=== PATIENT | male | born 1985 | race Caucasian/White ===

== ENCOUNTER 2024-08-17 15:08 | Inpatient (IN) | payer OTHER ==
[2024-08-17] VITALS (19 sets, daily range): BP systolic 103–157; BP diastolic 60–94; TEMP 98.2; O2SAT 100
[~2024-08-17] VITALS: Ht 165.1 cm; Wt 72.0 kg
[2024-08-17] MEDS: LIDOCAINE 2% 5ML JELLY UROJET TOP ONE (15:30)
[2024-08-17 15:40] LABS: BASO # 0.1 10^3/uL (0.0-0.2); BASO % 0.2 % (0.0-1.0); EOS % 0.1 % (0.0-3.0); HEMATOCRIT 48.4 % (42.0-52.0); HEMOGLOBIN 15.9 g/dl (13.5-17.5); LYMPH # 2.4 10^3/uL (1.5-5.0); LYMPH % 11.7 % (24.0-44.0); MEAN CORPUSCULAR HEMOGLOBIN 29.1 pg (27.0-33.0); MEAN CORPUSCULAR HGB CONC 32.9 g/dl (32.0-36.5); MEAN CORPUSCULAR VOLUME 88.6 fl (80.0-96.0); MONO # 1.4 10^3/uL (0.0-0.8); NEUTROPHILS # 16.4 10^3/uL (1.5-8.5); NEUTROPHILS % 80.6 % (36.0-66.0); PLATELET COUNT, AUTOMATED 323 10^3/uL (150-450); RED BLOOD COUNT 5.46 10^6/uL (4.30-6.10); WHITE BLOOD COUNT 20.3 10^3/uL (4.0-10.0)
[2024-08-17] MEDS: NS (Normal Saline) 0.9% 1,000 ML IV ONE ×2 (15:59→17:39)
[2024-08-17] MEDS: NALOXONE INJ 0.4MG/1ML VIAL IV PRN (15:59)
[2024-08-17 16:09] LABS: ETHYL ALCOHOL (ETHANOL) < 0.003 % (0.000-0.010)
[2024-08-17 16:11] LABS: SALICYLATE LEVEL < 3.0 MG/DL (<30)
[2024-08-17 16:12] LABS: ALBUMIN 4.3 G/DL (3.2-5.2); ALKALINE PHOSPHATASE 83 U/L (40-129); ALT/SGPT 28 U/L (7.0-40); AST/SGOT 29 U/L (<34); BILIRUBIN,DIRECT 0.3 MG/DL (<0.4); BILIRUBIN,TOTAL 1.1 MG/DL (0.3-1.2); BLOOD UREA NITROGEN 21 MG/DL (9-23); CALCIUM LEVEL 9.5 MG/DL (8.5-10.1); CARBON DIOXIDE LEVEL 29 MMOL/L (20-31); CHLORIDE LEVEL 105 MMOL/L (98-107); CREATININE FOR GFR 0.68 MG/DL (0.70-1.30); GLOMERULAR FILTRATION RATE > 90.0 (>60); GLUCOSE, FASTING 112 MG/DL (60-100); POTASSIUM SERUM 4.2 MMOL/L (3.5-5.1); SODIUM LEVEL 142 MMOL/L (136-145); TOTAL PROTEIN 7.2 G/DL (5.7-8.2)
[2024-08-17 16:14] LABS: THYROID STIMULATING HORMONE 0.136 uIU/ML (0.55-4.78)
[2024-08-17 16:19] LABS: BARBITURATES URINE NEGATIVE (NEGATIVE); METHADONE URINE NEGATIVE (NEGATIVE); PHENCYCLIDINE URINE NEGATIVE (NEGATIVE)
[2024-08-17 16:25] LABS: AMPHETAMINES LEVEL URINE POSITIVE (NEGATIVE); BENZODIAZEPINES URINE POSITIVE (NEGATIVE); CANNABINOIDS URINE POSITIVE (NEGATIVE); COCAINE METABOLITE URINE POSITIVE (NEGATIVE); OPIATES URINE POSITIVE (NEGATIVE)
[2024-08-17 17:02] LABS: CPK CREATINE PHOSPHOKINASE 485 U/L (46-171)
[2024-08-17] MEDS: LORazepam 2 MG/ML 1ML VIAL IV STA (17:05)
[2024-08-17] MEDS: ACETAMINOPHEN *IV* 1,000 MG in IV 1 EA IV ONE (17:10)
[2024-08-17] MEDS: ROCURONIUM BROMIDE 50MG/5ML VIAL IV ONE (17:20)
[2024-08-17] MEDS: ETOMIDATE INJ 20MG/10ML VIAL IV ONE (17:20)
[2024-08-17 17:26] LABS: PROCALCITONIN <0.04 ng/ml
[2024-08-17] MEDS: propofoL 1,000 MG in IV 1 EA IV SCH ×2 (17:31→18:21)
[2024-08-17] MEDS: ROCURONIUM BROMIDE 50MG/5ML VIAL IV PRN (17:44)
[2024-08-17] MEDS: MIDAZOLAM INJ 2MG/2ML VIAL IV STA ×2 (17:45→17:56)
[2024-08-17 17:55] LABS: ABG HCO3 22.1 MMOL/L (22.0-26.0); ABG O2 SATURATION 98.4 % (95.0-99.0); ABG PARTIAL PRESSURE CO2 39.9 mmHg (35.0-45.0); ABG PARTIAL PRESSURE O2 126.1 mmHg (75.0-100.0); ABG TOTAL CO2 23.3 MMOL/L (22.0-29.0); ABG pH (ARTERIAL) 7.361 UNITS (7.350-7.450)
[2024-08-17] MEDS ORDERED: MIDAZOLAM 5MG/ML 1ML VIAL As Ordered ONE (17:57)
[2024-08-17] MEDS: propofoL 200 MG/20 ML VIAL IV ONE (18:00)
[2024-08-17] MEDS: MIDAZOLAM 100MG/100ML-0.9%NACL 100 MG in IV 1 EA IV SCH ×2 (18:38→20:04)
[2024-08-17] MEDS ORDERED: FENTANYL DRIP LOCK BOX KEY 1 EACH XX PRN (18:50)
[2024-08-17] MEDS: fentaNYL CITRATE/NaCl 1,000 MCG in IV 1 EA IV SCH (18:55)
[2024-08-17 18:58] LABS: APPEARANCE, CSF CLOUDY (CLEAR); COLOR, CSF PINK (COLORLESS); CSF TUBE# CELL CNT TUBE 1
[2024-08-17] MEDS: fentaNYL 100 MCG/2 ML INJECTION IV ONE (18:59)
[2024-08-17 19:18] LABS: CSF TUBE# TP TUBE 2; TOTAL PROTEIN,CSF 33.5 MG/DL (15-45)
[2024-08-17 19:21] LABS: CSF TUBE# GLU TUBE 2
[2024-08-17] MEDS: CISATRACURIUM 10MG/ML 20 ML VIAL IV ONE (20:01)
[2024-08-17] MEDS: CISATRACURIUM 200 MG in NS 480 ML IV SCH (20:02)
[2024-08-17] MEDS: VANCOMYCIN HCL 1,500 MG, VIAL MATE ADAPTER 1 EACH in NS 500 ML IV ONE (20:07)
[2024-08-17] MEDS: LR 1,000 ML IV SCH (20:12)
[2024-08-17] MEDS: cefTRIAXone SOD 2 GM in DEXTROSE 5% (D5W) ADV/MINI-BAG 50 ML IV ONE (20:12)
[2024-08-17] MEDS: ACYCLOVIR IV SCH (22:42)
[2024-08-17] MEDS: NS IV SCH (22:42)
[2024-08-18] VITALS (36 sets, daily range): BP systolic 109–172; BP diastolic 57–98; TEMP 97.2–100.6; O2SAT 90–100
[2024-08-18 00:45] LABS: ALBUMIN 2.9 G/DL (3.2-5.2); ALKALINE PHOSPHATASE 56 U/L (40-129); ALT/SGPT 16 U/L (7.0-40); AST/SGOT 21 U/L (<34); BILIRUBIN,TOTAL 0.6 MG/DL (0.3-1.2); BLOOD UREA NITROGEN 17 MG/DL (9-23); CALCIUM LEVEL 7.2 MG/DL (8.5-10.1); CARBON DIOXIDE LEVEL 26 MMOL/L (20-31); CHLORIDE LEVEL 113 MMOL/L (98-107); CPK CREATINE PHOSPHOKINASE 274 U/L (46-171); CREATININE FOR GFR 0.57 MG/DL (0.70-1.30); GLOMERULAR FILTRATION RATE > 90.0 (>60); GLUCOSE, FASTING 79 MG/DL (60-100); PHOSPHORUS LEVEL 4.3 MG/DL (2.5-4.9); POTASSIUM SERUM 3.4 MMOL/L (3.5-5.1); SODIUM LEVEL 148 MMOL/L (136-145)
[2024-08-18] MEDS: KCL 10MEQ/100ML SWI (KRUN) 10 MEQ in IV 1 EA IV SCH (01:57)
[2024-08-18] MEDS: VANCOMYCIN HCL 1,000 MG, VIAL MATE ADAPTER 1 EACH in NS 250 ML IV SCH (05:10)
[2024-08-18 05:26] LABS: BASO # 0.1 10^3/uL (0.0-0.2); BASO % 0.4 % (0.0-1.0); EOS # 0.3 10^3/uL (0.0-0.5); EOS % 1.7 % (0.0-3.0); HEMATOCRIT 39.8 % (42.0-52.0); LYMPH # 3.7 10^3/uL (1.5-5.0); LYMPH % 22.7 % (24.0-44.0); MEAN CORPUSCULAR HEMOGLOBIN 29.4 pg (27.0-33.0); MEAN CORPUSCULAR HGB CONC 32.7 g/dl (32.0-36.5); MONO # 1.6 10^3/uL (0.0-0.8); MONO % 9.7 % (2.0-8.0); NEUTROPHILS # 10.5 10^3/uL (1.5-8.5); NEUTROPHILS % 65.2 % (36.0-66.0); RED BLOOD COUNT 4.42 10^6/uL (4.30-6.10); WHITE BLOOD COUNT 16.1 10^3/uL (4.0-10.0)
[2024-08-18 05:27] LABS: PLATELET COUNT, AUTOMATED 223 10^3/uL (150-450)
[2024-08-18 05:35] LABS: ALBUMIN 3.2 G/DL (3.2-5.2); ALKALINE PHOSPHATASE 61 U/L (40-129); ALT/SGPT 17 U/L (7.0-40); AST/SGOT 19 U/L (<34); BILIRUBIN,TOTAL 0.7 MG/DL (0.3-1.2); BLOOD UREA NITROGEN 16 MG/DL (9-23); CALCIUM LEVEL 8.3 MG/DL (8.5-10.1); CARBON DIOXIDE LEVEL 30 MMOL/L (20-31); CHLORIDE LEVEL 110 MMOL/L (98-107); CREATININE FOR GFR 0.63 MG/DL (0.70-1.30); GLOMERULAR FILTRATION RATE > 90.0 (>60); GLUCOSE, FASTING 100 MG/DL (60-100); POTASSIUM SERUM 3.9 MMOL/L (3.5-5.1); SODIUM LEVEL 147 MMOL/L (136-145); TOTAL PROTEIN 5.4 G/DL (5.7-8.2)
[2024-08-18 07:54] LABS: TRIGLYCERIDES LEVEL 166 MG/DL (<150)
[2024-08-18 07:55] LABS: VANCOMYCIN LEVEL TROUGH 9.4 UG/ML (10.0-20.0)
[2024-08-18] MEDS ORDERED: MED REC CURRENTLY UNOBTAINABLE XX SCH (08:35)
[2024-08-18] MEDS: PANTOPRAZOLE 40MG VIAL IV SCH (08:56)
[2024-08-18] MEDS: ENOXAPARIN 40MG/0.4ML SYRINGE (J1650 PER 10MG) SC SCH (08:56)
[2024-08-18] MEDS: D5W 1,000 ML IV ONE (12:22)
[2024-08-18 12:41] LABS: FREE T4 1.31 NG/DL (0.89-1.76); THYROID STIMULATING HORMONE 0.579 uIU/ML (0.55-4.78)
[2024-08-18] MEDS: cefTRIAXone SOD 1 GM in DEXTROSE 5% (D5W) ADV/MINI-BAG 50 ML IV SCH (20:27)
[2024-08-19] VITALS: BP 145/77; TEMP 98.9; O2SAT 97
[2024-08-19 04:00] VITALS: BP 160/77; TEMP 98.2; O2SAT 100
[2024-08-19 05:10] LABS: BASO % 0.2 % (0.0-1.0); EOS # 0.1 10^3/uL (0.0-0.5); EOS % 0.4 % (0.0-3.0); HEMATOCRIT 37.3 % (42.0-52.0); HEMOGLOBIN 12.5 g/dl (13.5-17.5); LYMPH # 2.8 10^3/uL (1.5-5.0); LYMPH % 14.8 % (24.0-44.0); MEAN CORPUSCULAR HEMOGLOBIN 29.6 pg (27.0-33.0); MEAN CORPUSCULAR HGB CONC 33.5 g/dl (32.0-36.5); MEAN CORPUSCULAR VOLUME 88.2 fl (80.0-96.0); MONO # 1.6 10^3/uL (0.0-0.8); MONO % 8.5 % (2.0-8.0); NEUTROPHILS # 14.3 10^3/uL (1.5-8.5); NEUTROPHILS % 75.8 % (36.0-66.0); PLATELET COUNT, AUTOMATED 202 10^3/uL (150-450); RED BLOOD COUNT 4.23 10^6/uL (4.30-6.10); WHITE BLOOD COUNT 18.9 10^3/uL (4.0-10.0)
[2024-08-19 05:41] LABS: ALBUMIN 3.1 G/DL (3.2-5.2); ALKALINE PHOSPHATASE 62 U/L (40-129); ALT/SGPT 15 U/L (7.0-40); AST/SGOT 18 U/L (<34); BILIRUBIN,TOTAL 0.9 MG/DL (0.3-1.2); BLOOD UREA NITROGEN 7 MG/DL (9-23); CALCIUM LEVEL 8.4 MG/DL (8.5-10.1); CARBON DIOXIDE LEVEL 28 MMOL/L (20-31); CHLORIDE LEVEL 107 MMOL/L (98-107); CREATININE FOR GFR 0.59 MG/DL (0.70-1.30); GLOMERULAR FILTRATION RATE > 90.0 (>60); GLUCOSE, FASTING 100 MG/DL (60-100); POTASSIUM SERUM 3.2 MMOL/L (3.5-5.1); SODIUM LEVEL 145 MMOL/L (136-145); TOTAL PROTEIN 5.3 G/DL (5.7-8.2)
[2024-08-19 08:00] VITALS: BP 140/71; TEMP 100; O2SAT 96
[2024-08-19] MEDS: POTASSIUM CHLORIDE 10% LIQ 20MEQ/15ML UDC PO ONE (09:06)
[2024-08-19 16:00] VITALS: BP 156/76; TEMP 98.9; O2SAT 98
[2024-08-19 20:53] VITALS: BP 141/73; TEMP 99.6; O2SAT 100
[2024-08-19] MEDS ORDERED: HOME MED LIST COMPLETE! XX SCH (22:00)
[2024-08-20 05:38] LABS: BASO # 0.1 10^3/uL (0.0-0.2); BASO % 0.4 % (0.0-1.0); EOS # 0.2 10^3/uL (0.0-0.5); EOS % 1.1 % (0.0-3.0); HEMATOCRIT 39.8 % (42.0-52.0); HEMOGLOBIN 13.2 g/dl (13.5-17.5); LYMPH # 3.3 10^3/uL (1.5-5.0); LYMPH % 23.4 % (24.0-44.0); MEAN CORPUSCULAR HEMOGLOBIN 29.1 pg (27.0-33.0); MEAN CORPUSCULAR HGB CONC 33.2 g/dl (32.0-36.5); MEAN CORPUSCULAR VOLUME 87.9 fl (80.0-96.0); MONO # 1.5 10^3/uL (0.0-0.8); MONO % 10.5 % (2.0-8.0); NEUTROPHILS # 8.9 10^3/uL (1.5-8.5); NEUTROPHILS % 64.2 % (36.0-66.0); PLATELET COUNT, AUTOMATED 235 10^3/uL (150-450); RED BLOOD COUNT 4.53 10^6/uL (4.30-6.10); WHITE BLOOD COUNT 13.9 10^3/uL (4.0-10.0)
[2024-08-20 05:57] LABS: ALKALINE PHOSPHATASE 70 U/L (40-129); ALT/SGPT 15 U/L (7.0-40); AST/SGOT 10 U/L (<34); BILIRUBIN,TOTAL 0.3 MG/DL (0.3-1.2); BLOOD UREA NITROGEN 10 MG/DL (9-23); CALCIUM LEVEL 8.2 MG/DL (8.5-10.1); CARBON DIOXIDE LEVEL 26 MMOL/L (20-31); CHLORIDE LEVEL 108 MMOL/L (98-107); CREATININE FOR GFR 0.62 MG/DL (0.70-1.30); GLOMERULAR FILTRATION RATE > 90.0 (>60); GLUCOSE, FASTING 102 MG/DL (60-100); POTASSIUM SERUM 3.3 MMOL/L (3.5-5.1); SODIUM LEVEL 143 MMOL/L (136-145); TOTAL PROTEIN 5.4 G/DL (5.7-8.2)
[2024-08-20 07:42] LABS: MAGNESIUM LEVEL 1.9 MG/DL (1.8-2.4)
[2024-08-20 08:00] VITALS: BP 144/72; TEMP 97.5; O2SAT 97
[2024-08-20] MEDS: POTASSIUM CHLORIDE 10MEQ SR TABLET PO SCH (08:36)
[2024-08-20 18:27] LABS: LYME TOTAL ANTIBODY CIA <= 0.90 Index (<=0.90)
== END 2024-08-20 14:23 | disposition home or self-care (01) | DRG 774 ==
LOC: EDBD 15:08 → M ED 15:08 → M ED INP 18:05 → M ICU 19:58
PROVIDERS: ADMIT Internal Medicine Pulmonary Disease; ATTEND General Practice
PROC: 5A1935Z Respiratory Ventilation, Less than 24 Consecutive Hours (ICD-10-PCS; principal; 2024-08-17)
PROC: 009U3ZX Drainage of Spinal Canal, Percutaneous Approach, Diagnostic (ICD-10-PCS; 2024-08-17)
PROC: 0BH17EZ Insertion of Endotracheal Airway into Trachea, Via Natural or Artificial Opening (ICD-10-PCS; 2024-08-17)
DX: F16.929 Hallucinogen use, unspecified with intoxication, unspecified (principal); G93.41 Metabolic encephalopathy; J68.0 Bronchitis and pneumonitis due to chemicals, gases, fumes and vapors; E87.0 Hyperosmolality and hypernatremia; E83.51 Hypocalcemia; E87.6 Hypokalemia; E86.0 Dehydration; R00.1 Bradycardia, unspecified; B97.29 Other coronavirus as the cause of diseases classified elsewhere; R03.0 Elevated blood-pressure reading, without diagnosis of hypertension; F41.9 Anxiety disorder, unspecified; F15.929 Other stimulant use, unspecified with intoxication, unspecified; F14.929 Cocaine use, unspecified with intoxication, unspecified

== ENCOUNTER 2024-09-12 17:51 | Emergency (ER) | payer SELFPAY ==
[2024-09-12] MEDS: ACETAMINOPHEN *IV* 1,000 MG in IV 1 EA IV ONE (19:41)
[2024-09-12] MEDS: NS (Normal Saline) 0.9% 1,000 ML IV ONE ×2 (19:41→21:44)
[2024-09-12] MEDS: ONDANSETRON 4MG 2ML VIAL IV ONE (19:41)
[2024-09-12 19:49] LABS: VENOUS BASE EXCESS -1.4 (-2.0-2.0); VENOUS HCO3 24.4 MMOL/L (23.0-27.0); VENOUS PARTIAL PRESSURE CO2 44.9 mmHg (38.0-50.0); VENOUS PARTIAL PRESSURE O2 59.2 mmHg (30.0-50.0); VENOUS PH 7.353 UNITS (7.330-7.430); VENOUS STANDARD HCO3 23.1 MMOL/L; VENOUS TOTAL CO2 25.8 MMOL/L (24.0-28.0)
[2024-09-12 19:53] LABS: BASO # 0.1 10^3/uL (0.0-0.2); BASO % 0.2 % (0.0-1.0); EOS # 0.2 10^3/uL (0.0-0.5); EOS % 0.5 % (0.0-3.0); HEMATOCRIT 40.7 % (42.0-52.0); HEMOGLOBIN 13.4 g/dl (13.5-17.5); LYMPH # 2.8 10^3/uL (1.5-5.0); LYMPH % 9.4 % (24.0-44.0); MEAN CORPUSCULAR HEMOGLOBIN 30.1 pg (27.0-33.0); MEAN CORPUSCULAR HGB CONC 32.9 g/dl (32.0-36.5); MEAN CORPUSCULAR VOLUME 91.5 fl (80.0-96.0); MONO % 6.8 % (2.0-8.0); NEUTROPHILS # 24.5 10^3/uL (1.5-8.5); NEUTROPHILS % 81.9 % (36.0-66.0); PLATELET COUNT, AUTOMATED 215 10^3/uL (150-450); RED BLOOD COUNT 4.45 10^6/uL (4.30-6.10); WHITE BLOOD COUNT 29.9 10^3/uL (4.0-10.0)
[2024-09-12 20:17] LABS: KETONE, URINE AUTO RFX NEGATIVE (NEGATIVE); LEUKOCYTE ESTERASE UR AUTO RFX NEGATIVE (NEGATIVE); MUCUS, URINE RFX SMALL (NEGATIVE); NITRITE, URINE AUTO RFX NEGATIVE (NEGATIVE); RBC, URINE AUTO RFX 1 /HPF (0-3); SQUAM EPITHELIAL CELL UR AURFX 0 /HPF (0-6); WBC, URINE AUTO RFX 1 /HPF (0-3)
[2024-09-12] MEDS: CEFEPIME HCL 2 GM in DEXTROSE 5% (D5W) ADV/MINI-BAG 50 ML IV ONE (21:44)
[2024-09-12 21:45] LABS: CK-MB VALUE MASS 4.6 NG/ML (<3.6)
[2024-09-12 21:46] LABS: ETHYL ALCOHOL (ETHANOL) < 0.003 % (0.000-0.010)
[2024-09-12 21:48] LABS: CPK CREATINE PHOSPHOKINASE 257 U/L (46-171); MB/CK RELATIVE INDEX 1.78 (< OR =4); SALICYLATE LEVEL < 3.0 MG/DL (<30)
[2024-09-12 21:49] LABS: THYROID STIMULATING HORMONE 0.662 uIU/ML (0.55-4.78)
[2024-09-12 21:50] LABS: ALBUMIN 3.5 G/DL (3.2-5.2); ALKALINE PHOSPHATASE 69 U/L (40-129); ALT/SGPT 50 U/L (7.0-40); AST/SGOT 25 U/L (<34); BILIRUBIN,DIRECT < 0.1 MG/DL (<0.4); BILIRUBIN,TOTAL 0.3 MG/DL (0.3-1.2); BLOOD UREA NITROGEN 24 MG/DL (9-23); CALCIUM LEVEL 8.3 MG/DL (8.5-10.1); CARBON DIOXIDE LEVEL 27 MMOL/L (20-31); CHLORIDE LEVEL 110 MMOL/L (98-107); CREATININE FOR GFR 0.67 MG/DL (0.70-1.30); GLOMERULAR FILTRATION RATE > 90.0 (>60); GLUCOSE, FASTING 76 MG/DL (60-100); POTASSIUM SERUM 3.6 MMOL/L (3.5-5.1); SODIUM LEVEL 146 MMOL/L (136-145); TOTAL PROTEIN 5.8 G/DL (5.7-8.2)
[2024-09-12] MEDS ORDERED: ISOVUE-370 76% 100ML VIAL As Ordered ONE (22:06)
[2024-09-12 22:13] LABS: AMPHETAMINES LEVEL URINE NEGATIVE (NEGATIVE); BARBITURATES URINE NEGATIVE (NEGATIVE); BENZODIAZEPINES URINE NEGATIVE (NEGATIVE); METHADONE URINE NEGATIVE (NEGATIVE); OPIATES URINE NEGATIVE (NEGATIVE); PHENCYCLIDINE URINE NEGATIVE (NEGATIVE)
[2024-09-12 22:15] LABS: CANNABINOIDS URINE POSITIVE (NEGATIVE); COCAINE METABOLITE URINE POSITIVE (NEGATIVE)
[2024-09-12] MEDS: methylPREDNISolone 125MG 2ML VIAL IV ONE (22:38)
[2024-09-13 08:47] VITALS: BP 130/69; TEMP 98.8; O2SAT 95
== END 2024-09-13 08:53 | disposition home or self-care (01) ==
LOC: M ED 17:51 → EDBD 17:51 → M ED 09-13 08:53
DX: F19.10 Other psychoactive substance abuse, uncomplicated (principal); Z91.030 Bee allergy status
CPT/HCPCS: 51701; 70450; 71045; 71260; 74177; 80047; 80048; 80076; 80143; 80307; 81001; 82077; 82140; 82550; 82553; 82803; 83605; 84443; 84484; 85025; 87040; 87077; 87154; 87186; 87486; 87581; 87633; 87798; 93005; 93041; 94760; 96365; 96366; 96375; 99285; J0131; J0692; J2405; J2919; Q9967

== ENCOUNTER → 2024-12-26 | Outpatient (CLI) | payer OTHER | LOC: M OUTALCOH 10:06 | PROVIDERS: ATTEND Psychiatry & Neurology Psychiatry | DX: F11.20 Opioid dependence, uncomplicated (principal); F12.10 Cannabis abuse, uncomplicated; Z72.0 Tobacco use ==

== ENCOUNTER 2025-01-06 07:47 | Outpatient (RCR) | payer MEDICAID | END 2025-01-27 | LOC: M OUTALCOH 07:47 | PROVIDERS: ATTEND Psychiatry & Neurology Psychiatry | DX: F11.20 Opioid dependence, uncomplicated (principal); F12.10 Cannabis abuse, uncomplicated; Z72.0 Tobacco use ==

== ENCOUNTER 2025-02-26 09:00 | Outpatient (RCR) | payer MEDICAID | END 2025-02-27 | LOC: M OUTALCOH 09:00 | PROVIDERS: ATTEND Psychiatry & Neurology Psychiatry | DX: F11.20 Opioid dependence, uncomplicated (principal); F12.10 Cannabis abuse, uncomplicated; Z72.0 Tobacco use ==

== ENCOUNTER 2025-03-12 13:11 | Outpatient (RCR) | payer MEDICAID | END 2025-03-29 | LOC: M OUTALCOH 13:11 | PROVIDERS: ATTEND Psychiatry & Neurology Psychiatry | DX: F11.20 Opioid dependence, uncomplicated (principal); F12.10 Cannabis abuse, uncomplicated; Z72.0 Tobacco use ==